=== PATIENT | male | born 1955 | race Two or more races ===

== ENCOUNTER 2020-01-07 04:36 | Inpatient (IN) | payer MEDICAID ==
[~2020-01-07] VITALS: Ht 167.6 cm; Wt 60.5 kg
[2020-01-07] MEDS ORDERED: cloNIDine HCL 0.1 MG TAB PO ONE (05:00)
[2020-01-07] MEDS ORDERED: InsuLIN REG 1unit/0.01ml Soln (100units/ml) IV ONE (05:00)
[2020-01-07] MEDS ORDERED: SODIUM CHLORIDE 0.9% 1,000 ML IV ONE ×3 (05:00→08:00)
[2020-01-07 05:53] LABS: Basophils # (auto) 0.1 10 ^3/uL (0-0.2); Basophils % (auto) 0.3 % (0.0-2.0); Eosinophils # (auto) 0 10 ^3/uL (0-0.8); Eosinophils % (auto) 0.1 % (0.0-7.0); Hematocrit 43.8 % (41.0-53.0); Lymphocytes # (auto) 1.4 10 ^3/uL (0.4-5.4); Lymphocytes % (auto) 8.9 % (10.0-50.0); Mean Corpuscular Hemoglobin 31.1 pg (28.0-32.0); Mean Corpuscular Volume 97.2 fL (80.0-100.0); Monocytes # (auto) 0.7 10 ^3/uL (0-1.3); Monocytes % (auto) 4.3 % (0.0-12.0); Neutrophils # (auto) 13.5 10 ^3/uL (1.6-8.6); Neutrophils % (auto) 86.4 % (37.0-80.0); Nucleated Red Blood Cells % 0.1 %; Platelet Count (auto) 415 10^3/uL (140-450); Red Blood Cells 4.51 10^6/uL (4.5-5.90); Red Cell Distribution Width 13.9 % (11.8-14.3); White Blood Cell 15.6 10^3/uL (4.4-10.8)
[2020-01-07 06:14] LABS: Chloride 89 mmol/L (98-107); Potassium 4.8 mmol/L (3.5-5.1)
[2020-01-07 06:48] LABS: Sodium 118 mmol/L (136-145)
[2020-01-07 06:50] LABS: Anion Gap 12 (5-15); Carbon Dioxide 17 mmol/L (21-32)
[2020-01-07 06:51] LABS: Alanine Aminotransferase 20 U/L (16-61); Albumin 3.4 g/dL (3.4-5.0); Alkaline Phosphatase 131 U/L (45-117); Aspartate Aminotransferase 8 U/L (15-37); BUN/Creatinine Ratio 26.9; Bilirubin, Total 0.5 mg/dL (0.2-1.0); Blood Urea Nitrogen 58 mg/dL (7-18); Calcium 10.4 mg/dL (8.5-10.1); GFR African American 40 mL/min; GFR Non-African American 33 mL/min; Glucose 990 mg/dL (74-106); Total Protein 7.5 g/dL (6.4-8.2)
[2020-01-07] MEDS ORDERED: INSULIN LANTUS (GLARGINE) 1 /0.01ml (100units/ml) SC ONE (07:00)
[2020-01-07] MEDS ORDERED: InsuLIN R (HUMAN) 100 UNITS in SODIUM CHL 0.9% 99 ML IV SCH (07:00)
[2020-01-07] MEDS ORDERED: DEXTROSE (50%) 50ML SYRG IV PRN (07:00)
[2020-01-07] MEDS: ACCU-CHEK COMFORT CURVE STRIP VI SCH ×11 (07:30→22:30)
[2020-01-07] MEDS ORDERED: MORPHINE SULF INJ 2 MG/ML SYRINGE 1ML IV PRN (08:00)
[2020-01-07] MEDS ORDERED: D5W/SOD CHLO 0.9% 1,000 ML IV ONE (08:00)
[2020-01-07] MEDS ORDERED: ONDANSETRON HCL 4 MG/2 ML VIAL IV PRN (08:00)
[2020-01-07] MEDS ORDERED: NITROGLYCERIN 0.4 MG SL TAB SL PRN (08:00)
[2020-01-07] MEDS ORDERED: HYDROcodone-ACET 5/325MG TAB PO PRN (08:00)
[2020-01-07] MEDS ORDERED: ACETAMINOPHEN 325 MG TAB PO PRN (08:00)
[2020-01-07] MEDS: MORPHINE SULF INJ 2 MG/ML SYRINGE 1ML IV PRN ×2 (08:56→14:59)
[2020-01-07] MEDS ORDERED: DOCUSATE ORAL LIQUID 100 MG/10 ML UD GT SCH (10:00)
[2020-01-07 10:32] LABS: BUN/Creatinine Ratio 28.8; Magnesium 2.2 mg/dL (1.6-2.6); Phosphorus 1.9 mg/dL (2.5-4.90); Potassium 3.5 mmol/L (3.5-5.1)
[2020-01-07] MEDS ORDERED: GABA100C9 PO (10:47)
[2020-01-07] MEDS ORDERED: ATOR40TA52 PO (10:47)
[2020-01-07] MEDS: InsuLIN R (HUMAN) 100 UNITS in SODIUM CHL 0.9% 99 ML IV SCH ×2 (10:47→22:33)
[2020-01-07] MEDS ORDERED: INSLISPI SC (10:47)
[2020-01-07] MEDS ORDERED: AMLO5TAB15 PO (10:47)
[2020-01-07] MEDS ORDERED: INSU1INJ19 SC (10:47)
[2020-01-07] MEDS: ENOXAPARIN SOD 40 MG/0.4 ML SYRINGE SC SCH (11:30)
[2020-01-07] MEDS: LACTULOSE 20Gm/30ML SOLN PO PRN (14:08)
[2020-01-07 15:20] LABS: BUN/Creatinine Ratio 31.6; Calcium 10.2 mg/dL (8.5-10.1); Magnesium 2.4 mg/dL (1.6-2.6); Phosphorus 1.9 mg/dL (2.5-4.90); Potassium 3.5 mmol/L (3.5-5.1)
[2020-01-07] MEDS ORDERED: POTASSIUM CHLORIDE 40 MEQ in D5W 5% 1,000 ML IV SCH (16:15)
[2020-01-07] MEDS ORDERED: POTASSIUM CHL 20MEQ/100ML 100 ML IV ONE ×2 (16:28→18:35)
[2020-01-07] MEDS: SOD CHL 0.45% WITH 20MEQ KCL 1,000 ML IV SCH (16:45)
[2020-01-07 21:39] LABS: Calcium 10.2 mg/dL (8.5-10.1); Magnesium 2.1 mg/dL (1.6-2.6); Potassium 4.1 mmol/L (3.5-5.1)
[2020-01-07 21:41] LABS: BUN/Creatinine Ratio 29.9; Phosphorus 1.8 mg/dL (2.5-4.90)
[2020-01-07] MEDS: DOCUSATE SOD 100 MG CAP PO SCH (22:13)
[2020-01-07] MEDS: ATORVASTATIN 20 MG TAB PO SCH (22:13)
[2020-01-07] MEDS: SENNA 8.6 MG TAB PO SCH (22:14)
[2020-01-07] MEDS: SODIUM PHOSPHATES 20 MEQ in SODIUM CHL 0.9% 100 ML IV ONE (23:15)
[2020-01-07 23:55] LABS: BUN/Creatinine Ratio 27.8; Calcium 9.7 mg/dL (8.5-10.1); Magnesium 2.2 mg/dL (1.6-2.6); Phosphorus 1.5 mg/dL (2.5-4.90); Potassium 3.6 mmol/L (3.5-5.1)
[2020-01-08] MEDS: ACCU-CHEK COMFORT CURVE STRIP VI SCH ×8 (01:34→19:59)
[2020-01-08] MEDS ORDERED: NICOTINE 14 MG/24HR TOPICAL PATCH TD ONE (03:45)
[2020-01-08] MEDS: LACTULOSE 20Gm/30ML SOLN PO PRN (04:36)
[2020-01-08] MEDS ORDERED: DEXTROSE (50%) 50ML SYRG IV PRN (05:45)
[2020-01-08 07:12] LABS: Basophils # (auto) 0.1 10 ^3/uL (0-0.2); Basophils % (auto) 0.5 % (0.0-2.0); Eosinophils # (auto) 0.2 10 ^3/uL (0-0.8); Eosinophils % (auto) 1.3 % (0.0-7.0); Hematocrit 39.5 % (41.0-53.0); Hemoglobin 13.4 g/dL (13.5-17.5); Lymphocytes # (auto) 2.7 10 ^3/uL (0.4-5.4); Lymphocytes % (auto) 19.6 % (10.0-50.0); Mean Corpuscular Hemoglobin 31.4 pg (28.0-32.0); Mean Corpuscular Volume 92.4 fL (80.0-100.0); Monocytes # (auto) 0.6 10 ^3/uL (0-1.3); Monocytes % (auto) 4.7 % (0.0-12.0); Neutrophils # (auto) 10.1 10 ^3/uL (1.6-8.6); Neutrophils % (auto) 73.9 % (37.0-80.0); Platelet Count (auto) 403 10^3/uL (140-450); Red Blood Cells 4.27 10^6/uL (4.5-5.90); Red Cell Distribution Width 13.5 % (11.8-14.3); White Blood Cell 13.6 10^3/uL (4.4-10.8)
[2020-01-08 07:32] LABS: Albumin 3.1 g/dL (3.4-5.0); Calcium 10.4 mg/dL (8.5-10.1); Magnesium 2.3 mg/dL (1.6-2.6); Potassium 3.7 mmol/L (3.5-5.1)
[2020-01-08 07:36] LABS: BUN/Creatinine Ratio 25.4; Bilirubin, Total 0.5 mg/dL (0.2-1.0); Phosphorus 1.9 mg/dL (2.5-4.90); Total Protein 6.6 g/dL (6.4-8.2)
[2020-01-08] MEDS ORDERED: InsuLIN REG 1unit/0.01ml Soln (100units/ml) SC SCH (08:00)
[2020-01-08] MEDS: SODIUM PHOSPHATES 20 MEQ in SODIUM CHL 0.9% 100 ML IV ONE (08:08)
[2020-01-08] MEDS ORDERED: POTASSIUM PHOSPHATE 22 MEQ in SODIUM CHL 0.9% 100 ML IV ONE (09:00)
--- NOTE | 2020-01-08 09:43 | NUR ---
Hold P.T. today. Patient is being transferred to ICU.
[2020-01-08] MEDS ORDERED: INSULIN LANTUS (GLARGINE) 1 /0.01ml (100units/ml) SC SCH ×2 (10:00→22:00)
[2020-01-08] MEDS: DOCUSATE SOD 100 MG CAP PO SCH ×2 (10:00→22:00)
[2020-01-08] MEDS: SODIUM CHLORIDE 0.9% 1,000 ML IV SCH ×2 (10:42→18:15)
--- NOTE | 2020-01-08 11:00 | NUR ---
Telemetry admit from ER ESTEFANI JARA admitted to Telemetry unit after SBAR received. Patient oriented to Nancy ventura RN, unit, room, bed, and unit policies regarding patient care and visiting hours. Patient now on continuous telemetry monitoring, tele box # 41 and telemetry reading on arrival to unit is sinus tach in the 100's. Patient weighed by bedscale and encouraged to call if they need something. All questions and concerns addressed, patient verbalized understanding.
[2020-01-08 11:37] VITALS: BP 118/63
--- NOTE | 2020-01-08 11:49 | NUR ---
CRITICAL BLOOD GLUCOSE 457, RECHECK 440, CALLED DOCTOR TERESA. ORDERS RECEIVED, WILL PLACE AND CARRY OUT.
--- NOTE | 2020-01-08 12:00 | NUR ---
ORDERS RECEIVED FROM DR. TERESA. PATIENT TO BE ON MODERATE SLIDING SCALE AND FOLLOW PROTOCOL, CHANGE LANTUS TO 30 UNITS HS.
[2020-01-08 12:09] VITALS: BP 118/63
[2020-01-08] MEDS: InsuLIN REG 1unit/0.01ml Soln (100units/ml) SC SCH ×3 (12:32→19:59)
[2020-01-08] MEDS: ENOXAPARIN SOD 40 MG/0.4 ML SYRINGE SC SCH (13:09)
--- NOTE | 2020-01-08 15:00 | NUR ---
IV REMOVAL PATIENT COMPLAINING OF PAIN AT THE IV SITE. IV REMOVED. CATHETER TIP INTACT, PRESSURE DRESSING APPLIED. PATIENT TOLERATED IT WELL.
[2020-01-08] MEDS: SOD CHL 0.45% WITH 20MEQ KCL 1,000 ML IV SCH (15:23)
[2020-01-08 16:35] VITALS: BP 118/68
--- NOTE | 2020-01-08 19:42 | NUR ---
PATIENT IS AOX4 AND RESTING IN BED WITH SIDE RAILS UP X2. BED IS LOCKED IN LOWEST POSITION WITH SIDE RAILS UP X2. WILL CONTINUE TO MONITOR. PLAN OF CARE WAS REVIEWED WITH PATIENT. WILL CONTINUE TO MONITOR.
[2020-01-08 22:00] VITALS: BP 110/67
[2020-01-08] MEDS: SENNA 8.6 MG TAB PO SCH (22:00)
[2020-01-08] MEDS: INSULIN LANTUS (GLARGINE) 1 /0.01ml (100units/ml) SC SCH (22:01)
[2020-01-08] MEDS: ATORVASTATIN 20 MG TAB PO SCH (22:25)
[2020-01-09] MEDS: InsuLIN REG 1unit/0.01ml Soln (100units/ml) SC SCH ×6 (00:28→20:26)
[2020-01-09] MEDS: ACCU-CHEK COMFORT CURVE STRIP VI SCH ×6 (00:28→20:12)
[2020-01-09 05:00] VITALS: BP 118/78
[2020-01-09] MEDS: SODIUM CHLORIDE 0.9% 1,000 ML IV SCH ×2 (05:00→15:00)
[2020-01-09 06:01] LABS: Basophils # (auto) 0.1 10 ^3/uL (0-0.2); Basophils % (auto) 0.5 % (0.0-2.0); Eosinophils # (auto) 0.1 10 ^3/uL (0-0.8); Eosinophils % (auto) 1.4 % (0.0-7.0); Hematocrit 34.6 % (41.0-53.0); Hemoglobin 11.8 g/dL (13.5-17.5); Lymphocytes # (auto) 3.8 10 ^3/uL (0.4-5.4); Lymphocytes % (auto) 36.7 % (10.0-50.0); Mean Corpuscular Hemoglobin 31.6 pg (28.0-32.0); Mean Corpuscular Hgb Conc. 34.1 g/dL (32.0-36.0); Mean Corpuscular Volume 92.7 fL (80.0-100.0); Monocytes # (auto) 0.7 10 ^3/uL (0-1.3); Monocytes % (auto) 6.4 % (0.0-12.0); Neutrophils # (auto) 5.8 10 ^3/uL (1.6-8.6); Nucleated Red Blood Cells % 0.1 %; Platelet Count (auto) 355 10^3/uL (140-450); Red Blood Cells 3.73 10^6/uL (4.5-5.90); Red Cell Distribution Width 13.5 % (11.8-14.3); White Blood Cell 10.5 10^3/uL (4.4-10.8)
[2020-01-09 06:23] LABS: Potassium 3.7 mmol/L (3.5-5.1)
[2020-01-09 06:29] LABS: Albumin 2.6 g/dL (3.4-5.0); BUN/Creatinine Ratio 24.3; Bilirubin, Total 0.4 mg/dL (0.2-1.0); Calcium 9.4 mg/dL (8.5-10.1); Magnesium 1.9 mg/dL (1.6-2.6); Total Protein 5.8 g/dL (6.4-8.2)
--- NOTE | 2020-01-09 07:30 | NUR ---
RECEIVED REPORT FROM NIGHT NURSE. PATIENT RESTING IN BED, NO DISTRESS NOTED. WILL CONTINUE TO MONITOR.
[2020-01-09 08:00] VITALS: BP 121/78
--- NOTE | 2020-01-09 08:00 | NUR ---
AM Assessment PT tolerated assessment well. No report/complains of pain. Pt resting with call light within reach. Will continue to monitor.
[2020-01-09 08:38] VITALS: BP 121/78
[2020-01-09] MEDS: SOD CHL 0.45% WITH 20MEQ KCL 1,000 ML IV SCH (08:45)
--- NOTE | 2020-01-09 08:45 | NUR ---
DOCTOR TERESA AT BEDSIDE.
[2020-01-09] MEDS: DOCUSATE SOD 100 MG CAP PO SCH ×2 (10:00→21:58)
--- NOTE | 2020-01-09 10:00 | NUR ---
WOUND CARE NOTE: PATIENT ADMITTED TO [facility] WITH DIAGNOSIS OF HYPERGLYCEMIA. CURRENT MARVIN SCORE IS 16. HE WAS NOTED TO HAVE SKIN INTEGRITY ISSUES, INCLUDING INTACT SCABBED ABRASIONS TO RIGHT WRIST AND RIGHT MOODY, AND INTACT COLLAGEN SCARS TO SACRUM UPON ADMIT. WOUND PHOTOS TAKEN AT THAT TIME BY BEDSIDE NURSE FOR REFERENCE. DISCHARGE ORDER IS PENDING FOR THIS PATIENT. SKIN/WOUND CARE PLAN IMPLEMENTED. PATIENT WOULD BENEFIT FROM BID/PRN APPLICATION WITH MOISTURE BARRIER CREAM, OPTIFOAM GENTLE SACRAL DRESSING PREVENTATIVE, LEAVE ABRASIONS OPEN TO AIR, SKIN/WOUND CARE PLAN. NO FURTHER WOUND CARE MONITORING NEEDED AT THIS TIME. Addendum: 01/09/20 at 1555 by Mandy Rothman RN Amended: Links added.
[2020-01-09] MEDS: ENOXAPARIN SOD 40 MG/0.4 ML SYRINGE SC SCH (10:10)
[2020-01-09 10:42] VITALS: BP 121/78
--- NOTE | 2020-01-09 12:07 | NUR ---
Assessment Patient is a 64-year-old male who is alert and oriented. Prior to admission he lived with his daughter Aparna and functioned with assistance. Per patient he recently moved in with his daughter Aparna . Patient informed me he has a history of Bipolar disorder. Patient receives 930 dlls from [employer]. Per patient he will return home to his prior living arrangements post discharge and Aparna will transport him home. Patient has a walker, electric wheelchair and cane for home use. Advised patient there is a social service consult home health safety evaluation and physical therapy. Patient requested additional resources for caregiver and [employer] to be given to his daughter. Placed call to patient daughter Aparna. Per Aparna she has contact [employer] and application is in process. Provided Aparna with private caregiver resources. Informed patient she has the right to participate in all discharge planning. Patient verbalized understanding and agreed to discharge plan. Faxed clinical information to [facility] and [facility]. Per Maricarmen with [employer] patient has been accepted and service to start within 24-48hrs upon d/c day. Addendum: 01/09/20 at 1208 by ARTEMIO SCHNEIDER Amended: Links added.
[2020-01-09 13:00] VITALS: BP_SYST 117; BP_SYST 17; BP_DIAS 66
--- NOTE | 2020-01-09 13:22 | NUR ---
Obtain authorization from [facility] for [place] [id number].
--- NOTE | 2020-01-09 14:00 | NUR ---
SPOKE WITH PATIENT'S DAUGHTER STEPHANIE, SHE STATED THAT SHE IS GETTING THINGS TOGETHER FOR THE PATIENT AT HOME AND WILL PICK HIM UP AFTER 1900.
[2020-01-09 17:08] VITALS: BP 117/67
--- NOTE | 2020-01-09 21:55 | NUR ---
Discharge instructions given as ordered. Encourage to follow up with PMD as instructed. All questions and concerns addressed. Patient verbalized understanding. Medication reconciliation form completed and copy given to patient. IV removed with catheter intact, pressure dressing applied. Telemetry unit returned to ICU. Patient taken to vehicle via wheelchair with all personal belongings, accompanied by staff POSITION CLASSIFICATION MANAGER. No distress noted at time of departure.
[2020-01-09] MEDS: SENNA 8.6 MG TAB PO SCH (21:58)
[2020-01-09] MEDS: ATORVASTATIN 20 MG TAB PO SCH (21:59)
[2020-01-09] MEDS: INSULIN LANTUS (GLARGINE) 1 /0.01ml (100units/ml) SC SCH (22:19)
== END 2020-01-09 21:55 | disposition home health service (06) | DRG 420 ==
LOC: ER 04:36 → EDBD 04:36 → TELE 04:37 → TELE-CENTR 01-08 10:44
PROVIDERS: ADMIT Internal Medicine; ATTEND Internal Medicine
DX: E10.10 Type 1 diabetes mellitus with ketoacidosis without coma (principal); N17.0 Acute kidney failure with tubular necrosis; I10 Essential (primary) hypertension; E86.0 Dehydration; E87.1 Hypo-osmolality and hyponatremia; E78.5 Hyperlipidemia, unspecified; E83.42 Hypomagnesemia; E88.09 Other disorders of plasma-protein metabolism, not elsewhere classified; F12.90 Cannabis use, unspecified, uncomplicated; F17.210 Nicotine dependence, cigarettes, uncomplicated; K59.00 Constipation, unspecified; Z79.4 Long term (current) use of insulin; Z91.14 Patient's other noncompliance with medication regimen; D72.829 Elevated white blood cell count, unspecified
CPT/HCPCS: 36415; 36600; 71045; 80048; 80053; 82010; 82805; 82962; 83036; 83735; 83970; 84100; 84484; 85025; 96361; 96372; 96374; 99291; G0378; J1815; J3480